=== PATIENT | female | born 1940 | race Caucasian/White ===

== ENCOUNTER → 2016-12-12 | Day surgery (SDC) | payer MEDICARE ==
[~2016-12-12] MED LIST: *RESP: ALBUTEROL 2.5 MG/3 ML NEB (PRN) PERIprocedural Use ONLY NEB ONE; ACETAMINOPHEN 1000 MG/100 ML VIAL IV ONE; BRIM0.2S4 EACH EYE; BUPIVACAINE HCL PF 0.5% 30 ML VIAL ONE; CLINDAMYCIN INJ 900 MG in SODIUM CHLORIDE 0.9% INJ 100 ML IV ONE; DEXT 5%-NACL 0.45% 1000 ML INJ 1,000 ML IV SCH; DO NOT ADM ANY ANTICOAGULANT DRUGS XX PRN; ERGO1CAP10 PO; FAMOTIDINE 20 MG/2 ML VIAL ONE; GLIP1TAB60 PO; INSULIN HUMAN REGULAR 1,000 UNITS/10 ML VIAL SQ PRN; LACTATED RINGER'S 1000 ML IV SCH; LATA.005%O RIGHT EYE; LOVA40TA PO; METF-382 PO; MIDAZOLAM HCL 2 MG/2 ML VIAL ONE; OMEP20TA PO; ONDANSETRON HCL 4 MG/2 ML VIAL IV PUSH ONE; POVIDONE IODINE 10% OINT 1 PACKET TOP ONE; PROPOFOL 200 MG/20 ML AMP IV ONE; SODIUM CHLORID 0.9% 500 ML IV SCH; SODIUM CHLORIDE 0.9% FLUSH 5 ML FLUSH IVF PRN; SODIUM CHLORIDE 0.9% FLUSH 5 ML FLUSH IVF SCH; SODIUM CHLORIDE 0.9% INJ 100 ML ONE; TELM1TAB PO; UMEC1INH INH; VENTAER INH; VITA500T49 PO; fentaNYL CITRATE 250 MCG/5 ML AMP ONE; methylPREDNISolone SOD SUCC 125 MG/2 ML VIAL ONE
[2016-12-12 06:23] VITALS: BP 148/93; PULSE 75; RESP 18; TEMP 98.1; O2SAT 98
[2016-12-12 07:06] LABS: AUTOMATED NEUTROPHIL # 4.8 TH/MM3 (1.8-7.7); BASOPHIL # 0.1 TH/MM3 (0-0.2); BASOPHIL % 1.1 % (0.0-2.0); EOSINOPHIL # 0.2 TH/MM3 (0-0.4); LYMPH % 32.9 % (9.0-44.0); LYMPHOCYTE # 2.7 TH/MM3 (1.0-4.8); MEAN CELL VOLUME 69.9 FL (80.0-100.0); MEAN CORPUSCULAR HEMOGLOBIN 21.8 PG (27.0-34.0); MEAN CORPUSCULAR HGB CONC 31.2 % (32.0-36.0); MONO % 6.3 % (0.0-8.0); NEUT % 57.7 % (16.0-70.0); PLATELET COUNT 255 TH/MM3 (150-450); RED CELL DISTRIBUTION WIDTH 15.9 % (11.6-17.2); WHITE BLOOD COUNT 8.3 TH/MM3 (4.0-11.0)
[2016-12-12 07:07] LABS: HEMO FLAGS AUTO DIFF
[2016-12-12 07:48] LABS: OVALOCYTES 1+ (NORMAL); PLATELET ESTIMATE SMEAR NORMAL (NORMAL); PLATELET MORPHOLOGY NORMAL (NORMAL); SCAN/DIFF AUTO DIFF CONFIRMED
--- NOTE | 2016-12-12 07:58 | HP.UPD ---
H&P Update Date: Dec 12, 2016 Note The Pre-Admit History and Physical Examination regarding the above named patient was reviewed (including, but not limited to, vital signs, medications, allergies, co-morbid conditions), and upon re-examination it is noted that: Indicated with "X" x - the patient's condition has not significantly changed since the last examination. [] - the patient's condition has changed since the last examination. Changes: Sarah Jansen MD Dec 12, 2016 07:58
--- NOTE | 2016-12-12 10:22 | HHI.PR ---
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 Anesthesia: General Drains: None Tourniquet time (min at mmHg) 62 minutes at 220 mmHg Patient to: PACU Patient Condition: Good Date/Time of Procedure: SEE SURGICAL CARE RECORD Sarah Jansen MD Dec 12, 2016 10:22
[2016-12-12 11:25] VITALS: BP 122/77; PULSE 67; RESP 16; TEMP 96.6; O2SAT 97
--- NOTE | 2016-12-12 17:57 | EKG ---
Date Performed: 12/12/2016 Time Performed: 07:08:54 PTAGE: 76 years EKG: Sinus rhythm NORMAL ECG NO PREVIOUS TRACING DOCTOR: Marianna Briscoe Interpretating Date/Time 12/12/2016 17:57:17
--- NOTE | 2016-12-13 20:24 | MP ---
cc: KEESHA CHRISTINE M.D. DATE OF SURGERY 12/12/16 PREOPERATIVE DIAGNOSIS 1. Right cubital tunnel syndrome. 2. Right carpal tunnel syndrome. 3. Compression right Guyon's canal POSTOPERATIVE DIAGNOSIS 1. Right cubital tunnel syndrome. 2. Right carpal tunnel syndrome. 3. Compression right Guyon's canal PROCEDURE 1. Open release of the right cubital tunnel 2. Open release of the right carpal tunnel 3. Open release of Guyon's canal ANESTHESIA General SURGEON Keesha Christine MD INDICATION A 76-year-old female with compression of the ulnar nerve at the palm and the elbow as well as carpal tunnel syndrome. FINDINGS At the completion of the procedure, all of the tunnels had been released. There was evidence of significant compression in the elbow just distal to the cubital tunnel as well as in the wrist. TOURNIQUET TIME 62 minutes. PROCEDURE IN DETAIL The patient was seen preoperatively where the site and side identified and marked. The patient was then taken to operating room, placed in a supine position. Identity was checked against the arm band and the consent form, site and side confirmed, time-out called prior to beginning procedure. The right upper extremity was prepped with Hibiclens and draped in usual sterile fashion. The area to be incised was outlined with a marking pen as a longitudinal incision over the cubital tunnel and the course of the ulnar nerve at the elbow. This was approximately 4 cm distal and approximately 6 cm proximal. In addition, a 3-4 cm longitudinal incision was designed just at the ulnar side of the midline in the palm. The arm was exsanguinated and the tourniquet inflated to 220 mmHg. Attention was first turned to the elbow where the incision was made down through the skin down to the subcutaneous tissue. Under loupe magnification using sharp and blunt dissection, superficial vessels and nerves are identified and retracted exposing the ulnar nerve which was then released approximately 10 cm proximal to the cubital tunnel and 4 cm distal. A significant area of compression was noted just distal to the cubital tunnel. This was released and the remaining nerve was freed proximally and distally. The wound was then copiously irrigated with saline, injected with bupivacaine 0.5% plain and closed in layers with 3-0 Vicryl and 4-0 nylon. Attention was then turned to the palm where the incision was made down through the skin down to the subcutaneous tissue down to the palmar fascia. Distally, a small hole was poked in the palmar fascia and, using the ulnar artery as a guide, Guyon's canal was released. The ulnar artery and nerve with then retracted ulnarly, the median nerve retracted medially and, using the flexor tendon at the ring finger as a guide, the transverse carpal ligament was divided. Once the forearm fascia was reached, the scissor was kept in a slightly open position. Using the push technique, the forearm fascia was released for approximately 2-3 cm into the distal forearm. The nerve was then carefully from the roof of the carpal tunnel and an epineurolysis was performed. The wound was then copiously irrigated with saline. The soft tissues were injected with bupivacaine 0.5% plain and the wound was closed with a running 4-0 nylon suture. Pressure was then applied to both wounds. The tourniquet was released after 62 minutes of tourniquet time. After several minutes, there was no evidence of any oozing and a dressing was applied using povidone-iodine ointment, Adaptic, Telfa, fluffy gauze, 4x4s and hand wrap. The patient was then taken from the operating room to the recovery room in satisfactory condition having tolerated the procedure well. Postoperative instructions include keeping the arm elevated, keeping it clean and dry and returning in several days for follow up. MD ADRIAN Watt/ /10:26 AM /8:06 PM CLAUDIA
== END | disposition home or self-care (01) ==
LOC: HSDC 05:36
PROVIDERS: ATTEND Specialist
DX: G56.01 Carpal tunnel syndrome, right upper limb (principal); G56.21 Lesion of ulnar nerve, right upper limb; I10 Essential (primary) hypertension; E11.9 Type 2 diabetes mellitus without complications; J44.9 Chronic obstructive pulmonary disease, unspecified
CPT/HCPCS: 01810; 64718; 64719; 64721; 85025; 93005; 94640; J0131; J2250; J2405; J2930; J3010; J7120; J7613

== ENCOUNTER → 2017-07-13 | Day surgery (SDC) | payer MEDICARE, OTHER ==
[~2017-07-13] MED LIST changes: -*RESP: ALBUTEROL 2.5 MG/3 ML NEB (PRN) PERIprocedural Use ONLY NEB ONE; -ACETAMINOPHEN 1000 MG/100 ML VIAL IV ONE; -BUPIVACAINE HCL PF 0.5% 30 ML VIAL ONE; -CLINDAMYCIN INJ 900 MG in SODIUM CHLORIDE 0.9% INJ 100 ML IV ONE; -DEXT 5%-NACL 0.45% 1000 ML INJ 1,000 ML IV SCH; -DO NOT ADM ANY ANTICOAGULANT DRUGS XX PRN; -FAMOTIDINE 20 MG/2 ML VIAL ONE; -INSULIN HUMAN REGULAR 1,000 UNITS/10 ML VIAL SQ PRN; +LACTATED RINGER'S 1000 ML INJ 1,000 ML ONE; -LACTATED RINGER'S 1000 ML IV SCH; -MIDAZOLAM HCL 2 MG/2 ML VIAL ONE; -ONDANSETRON HCL 4 MG/2 ML VIAL IV PUSH ONE; -POVIDONE IODINE 10% OINT 1 PACKET TOP ONE; +PROPOFOL 100 MG/10 ML INJ IV ONE; -PROPOFOL 200 MG/20 ML AMP IV ONE; -SODIUM CHLORID 0.9% 500 ML IV SCH; -SODIUM CHLORIDE 0.9% FLUSH 5 ML FLUSH IVF PRN; -SODIUM CHLORIDE 0.9% FLUSH 5 ML FLUSH IVF SCH; -SODIUM CHLORIDE 0.9% INJ 100 ML ONE; -fentaNYL CITRATE 250 MCG/5 ML AMP ONE; -methylPREDNISolone SOD SUCC 125 MG/2 ML VIAL ONE
--- NOTE | 2017-07-13 14:24 | GIPROC ---
[facility] [address] [place], [address] EGD PROCEDURE REPORT EXAM DATE: 07/13/2017 PATIENT NAME: Nohemi Galaviz MR#: [id number] BIRTHDATE: 1940 STATUS: outpatient ATTENDING: Juanjose Guevara MD VISIT ID: [id number] MACHINE TRIMMER: Rukhsana Shepard RN ORDER #: [id number] INDICATIONS: The patient is a 77 yr old female here for an EGD due to dyspepsia and dysphagia. PROCEDURE PERFORMED: EGD w/ biopsy and EGD w/ dilation of esophagus via guidewire MEDICATIONS: None and Per Anesthesia. ASA CLASS: Class III PHYSICAL EXAM: normal CONSENT: The patient understands the risks and benefits of the procedure and understands that these risks include, but are not limited to: sedation, allergic reaction, infection, perforation and/or bleeding. Alternative means of evaluation and treatment include, among others: physical exam, x-rays, and/or surgical intervention. The patient elects to proceed with this endoscopic procedure. DESCRIPTION OF PROCEDURE: for proper function. Hand hygiene and appropriate measures for infection prevention was taken. After the risks, benefits and alternatives of the procedure were thoroughly explained, Informed consent was verified, confirmed and timeout was successfully executed by the treatment team. The EC-2990i ([id number]) endoscope was introduced through the mouth and advanced to the second portion of the duodenum. The instrument was slowly withdrawn as the mucosa was fully examined. Esophageal ring s/p dilation size 17 mm. Mild gastritis Bx from antrum to R/O H pylori. The endoscopy was otherwise normal. Retroflexed views revealed no abnormalities The gastroscope was then slowly withdrawn and removed. COMPLICATIONS: There were no complications. IMPRESSIONS: 1. Esophageal ring s/p dilation size 17 mm 2. Mild gastritis Bx from antrum to R/O H pylori 3. Normal endoscopy otherwise 4. Retroflexed views revealed no abnormalities RECOMMENDATIONS: 1. Await biopsy results. Biopsy results will not be ready for 7-10 days. If you don't hear from us in two weeks, call our office for biopsy results. 2. Anti-reflux regimen 3. Avoid NSAIDS 4. Continue PPI PATIENT CONDITION: stable DISPOSITION: Home REPEAT EXAM: Return as needed for EGD Juanjose Guevara MD eSigned: Juanjose Guevara MD 07/13/2017 2:23 PM cc: Ana M Garcia M.D.
== END | disposition home or self-care (01) ==
LOC: ESDC 12:24
PROVIDERS: ATTEND Hospitalist
DX: R13.10 Dysphagia, unspecified (principal); R10.13 Epigastric pain; K29.70 Gastritis, unspecified, without bleeding; K22.2 Esophageal obstruction
CPT/HCPCS: 00740; 43239; 43248; 88305; 88312; J7120